=== PATIENT | female | born 1940 | race Caucasian/White ===

== ENCOUNTER 2017-02-22 14:39 | Emergency (ER) | payer MEDICARE, BC ==
[2017-02-22 15:20] VITALS: BP 128/66
--- NOTE | 2017-02-22 15:41 | EDM.PDOC ---
ED HPI GENERAL MEDICAL PROBLEM - General Chief Complaint: Lower Extremity Injury/Pain Stated Complaint: RIGHT FOOT, SECOND TOE FRACTURE? Time Seen by Provider: 02/22/17 15:37 Source of Information: Reports: Patient, Family - History of Present Illness INITIAL COMMENTS - FREE TEXT/NARRATIVE: Pt with fall last evening at home about 5pm. Stubbed right 2nd toe and scuffed left knee up. Did take Motrin this morning for pain. 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 - Related Data Allergies Allergy/AdvReac Type Severity Reaction Status Date / Time Sulfa (Sulfonamide Allergy Confusion Verified 02/22/17 15:19 Antibiotics) sulfamethoxazole Allergy Stomach Verified 02/22/17 15:19 [From Bactrim] Upset trimethoprim [From Bactrim] Allergy Stomach Verified 02/22/17 15:19 Upset Home Meds: Home Meds Aspirin [Adult Low Dose Aspirin EC] 324 mg PO DAILY 02/08/14 [History] Diltiazem [Cardizem CD] 240 mg PO DAILY 02/08/14 [History] Levothyroxine Sodium [Levothyroxine Sodium] 112 mcg PO DAILY 02/08/14 [History] Nitroglycerin [Nitrostat] 1 tab SL ASDIRECTED 12/23/14 [History] Omeprazole [Prilosec] 40 mg PO DAILY 12/23/14 [History] Biotin 1 tab PO DAILY 10/29/16 [History] Calcium Carbonate/Vitamin D3 [Calcium 250+D] 1 tab PO DAILY 10/29/16 [History] Cyanocobalamin (Vitamin B-12) [B-12] 1 tab PO DAILY 10/29/16 [History] Cyclobenzaprine [Flexeril] 1 tab PO BEDTIME PRN 10/29/16 [History] Evening [place] Oil [[place]ing [place]] 2 cap PO DAILY 10/29/16 [History] Gluc 2KCl/Chondr/Kash Hy/Hy Ac [Glucosamine & Chondroitin Cap] 1 cap PO DAILY [History] Mometasone Furoate [Elocon 0.1% Crm] 1 appful TOP DAILY 10/29/16 [History] Multivitamin with Minerals [Multiple Vitamin] 1 tab PO DAILY 10/29/16 [History] Nabumetone [Relafen] 1 tab PO DAILY PRN 10/29/16 [History] Ubidecarenone [Coenzyme Q10] 1 cap PO DAILY 10/29/16 [History] Vitamin E 1 cap PO DAILY 10/29/16 [History] Isosorbide Mononitrate [Imdur] 30 mg PO DAILY 02/22/17 [History] Rosuvastatin [Crestor] 5 mg PO BEDTIME 02/22/17 [History] Past Medical History Cardiovascular History: Reports: [place] Gastrointestinal History: Reports: GERD, Hiatal Hernia Musculoskeletal History: Reports: Arthritis Endocrine/Metabolic History: Reports: Hypothyroidism Oncologic (Cancer) History: Reports: Uterine, Other (See Below) Other Oncologic History: precancerous - Past Surgical History Cardiovascular Surgical History: Reports: None GI Surgical History: Reports: Appendectomy Female Surgical History: Reports: Hysterectomy Musculoskeletal Surgical History: Reports: None Social & Family History - Tobacco Use Smoking Status *Q: Never Smoker Second Hand Smoke Exposure: No - Alcohol Use Days Per Week of Alcohol Use: 2 Number of Drinks Per Day: 1 Total Drinks Per Week: 2 - Recreational Drug Use Recreational Drug Use: No Review of Systems - Review of Systems Review Of Systems: See Below Constitutional: Reports: No Symptoms Musculoskeletal: Reports: Foot Pain Skin: Reports: Bruising (to right 2nd toe) Trauma Exam - Physical Exam Exam: See Below Exam Limited By: No Limitations General Appearance: Reports: Alert, WD/WN, No Apparent Distress Head: Reports: Atraumatic, Normocephalic Neck: Reports: Non-Tender, Full Range of Motion, Normal Alignment, Normal Inspection Respiratory Exam: Reports: No Respiratory Distress, Lungs Clear, Normal Breath Sounds Cardiovascular: Reports: Normal Peripheral Pulses, Regular Rate, Rhythm, No Edema, No Gallop, No JVD, No Murmur, No Rub Extremities: Bony-Point Tenderness, Pain with Movement, Tenderness (right 2nd toe) 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 As Tested, No Motor/Sensory Deficits, Alert , Normal Mood/Affect, Oriented x 3 Skin: Reports: Ecchymosis, Other (skin with road rash to left knee) Course - Vital Signs Last Recorded V/S: Last Vital Signs Temp 98.6 F 02/22/17 15:19 Pulse 75 02/22/17 15:19 Resp 16 02/22/17 15:19 BP 128/66 02/22/17 15:19 Pulse Ox 95 02/22/17 15:19 - Orders/Labs/Meds Orders: Active Orders 24 hr Category Date Time Status Foot 2V Rt [CR] Stat Exams 02/22/17 15:40 Taken Departure - Departure Time of Disposition: 16:15 Disposition: Home, Self-Care 01 Condition: good Clinical Impression: Toe pain, left - Discharge Information Instructions: Pain Medicine Instructions, [id number] Referrals: Josafat Downs MD [Primary Care Provider] - Forms: ED Department Discharge Additional Instructions: Xray shows no fracture. Explained to patient that it is just bruised. We will cleanse and dress her left knee with bacitracin. She can radha tape her 2nd toe to the great toe for additional support. Encourage solid shoe, Ibuprofen and ice to toe for pain management. Followup if worsening. - My Orders Last 24 Hours: My Active Orders 02/22/17 15:40 Foot 2V Rt [CR] Stat - Assessment/Plan Last 24 Hours: My Active Orders 02/22/17 15:40 Foot 2V Rt [CR] Stat
[2017-02-22] MEDS ORDERED: Bacitracin Oint 1 GM U/D Packet TOP ONE (16:16)
--- NOTE | 2017-02-24 08:46 | CR ---
Advanced joint space narrowing second PIP joint. No fracture. No lateral view obtained. Advanced deg enerative changes first MTP and TMT joint.
== END 2017-02-22 16:35 | disposition home or self-care (01) ==
LOC: JP.ED 14:39
DX: S80.02XA Contusion of left knee, initial encounter (principal); M79.674 Pain in right toe(s); K21.9 Gastro-esophageal reflux disease without esophagitis; I25.2 Old myocardial infarction; M19.90 Unspecified osteoarthritis, unspecified site; E03.9 Hypothyroidism, unspecified; Z88.2 Allergy status to sulfonamides; Z88.8 Allergy status to other drugs, medicaments and biological substances; Z79.82 Long term (current) use of aspirin; Z79.899 Other long term (current) drug therapy; Z90.49 Acquired absence of other specified parts of digestive tract; Z90.710 Acquired absence of both cervix and uterus; W19.XXXA Unspecified fall, initial encounter
CPT/HCPCS: 73620-26-RT; 73620-RT; 99282; 99284

== ENCOUNTER 2017-12-05 07:26 | Day surgery (SDC) | payer MEDICARE, BC ==
[2017-12-05] MEDS ORDERED: Propofol 200 MG/20 ML SDV ONE (07:56)
[2017-12-05] MEDS ORDERED: fentaNYL 100 MCG/2 ML SDV ONE (07:57)
[2017-12-05] MEDS ORDERED: Lactated Ringers 1,000 ML IV SCH (08:15)
[2017-12-05 10:21] VITALS: BP 144/76
--- NOTE | 2017-12-08 07:32 | OR ---
DATE OF PROCEDURE: 12/05/2017 PREOPERATIVE DIAGNOSES: New onset constipation and history of polyps. POSTOPERATIVE DIAGNOSES: Diverticulosis, small rectal polyp, new onset constipation, history of polyps, and incomplete colonoscopy. PROCEDURE: Colonoscopy only to about 30 cm into the sigmoid colon. Biopsy resection of small rectal polyp. ANESTHESIA: IV anesthesia with monitored anesthesia care. INDICATION: This 77-year-old white female is referred for a colonoscopy. She has new onset constipation. Also, in the record, it says she has a history of polyps. She thinks her last colonoscopic exam was done about 10 years ago. I counseled her for a colonoscopy with possible biopsy and/or polypectomy, including risks and alternatives, and she gave her informed consent to proceed. DESCRIPTION OF PROCEDURE: The patient was placed in the left lateral decubitus position. IV anesthesia was administered by the Anesthesia Service. Time-out was held. A rectal exam was performed, which was unremarkable. The flexible video Olympus colonoscope was introduced through her anus, up her rectum, and out her colon. We could only get to about 30 cm. We could not, despite multiple maneuvers, get the scope to go any higher. The scope was then slowly withdrawn, examining the mucosa throughout. We saw multiple diverticula in the sigmoid colon. In the proximal rectum, we saw a small polyp, which was removed with the biopsy forceps. The scope was retroflexed. The distal rectum showed some minor hemorrhoidal tissue, otherwise unremarkable. The scope was straightened and removed. She tolerated the procedure well. We will order a barium enema. Issa Adams MD /[id number]
== END 2017-12-05 11:00 | disposition home or self-care (01) ==
LOC: JP.SDS 07:26
PROVIDERS: ATTEND Surgery
DX: Z12.11 Encounter for screening for malignant neoplasm of colon (principal); D12.8 Benign neoplasm of rectum; K57.30 Diverticulosis of large intestine without perforation or abscess without bleeding; I25.10 Atherosclerotic heart disease of native coronary artery without angina pectoris; I10 Essential (primary) hypertension; K21.9 Gastro-esophageal reflux disease without esophagitis; E03.9 Hypothyroidism, unspecified; Z86.010 Personal history of colon polyps; Z88.1 Allergy status to other antibiotic agents; Z88.2 Allergy status to sulfonamides
CPT/HCPCS: 45380; J2704; J3010; J7120; 88305

== ENCOUNTER 2018-10-12 20:03 | Emergency (ER) | payer MEDICARE, BC ==
--- NOTE | 2018-10-12 20:14 | EDM.PDOC ---
ED HPI GENERAL MEDICAL PROBLEM - General Chief Complaint: General Stated Complaint: ILLNESS Time Seen by Provider: 10/12/18 20:05 Source of Information: Reports: Patient, EMS History Limitations: Reports: Altered Mental Status - History of Present Illness INITIAL COMMENTS - FREE TEXT/NARRATIVE: 78-year-old female who lost her daughter yesterday had company today, was having some drinks and when the company got up to leave she went suddenly unresponsive. She was not responding to voice so EMS was called. In route her glucose was checked and was normal, and she was intermittently visiting with the ambulance crew. On arrival she was acting somnolent and unresponsive but when I pried her eyes open she started moving them around, I asked her to cooperate and start talking with me and then we began having a normal conversation. However when her service rig operator arrived who she was with earlier this evening, she went unresponsive again. Duration: Hour(s): (Symptoms of been waxing and waning for the past hour) Associated Symptoms: Reports: Confusion, Chest Pain (Intermittent chest discomfort), Malaise. Denies: Headaches, Loss of Appetite, Shortness of Breath - Related Data Allergies Allergy/AdvReac Type Severity Reaction Status Date / Time Sulfa (Sulfonamide Allergy Confusion Verified 09/11/18 14:31 Antibiotics) sulfamethoxazole Allergy Stomach Verified 09/11/18 14:31 [From Bactrim] Upset trimethoprim [From Bactrim] Allergy Stomach Verified 09/11/18 14:31 Upset Home Meds: Home Meds Aspirin [Adult Low Dose Aspirin EC] 325 mg PO DAILY 02/08/14 [History] Diltiazem [Cardizem CD] 240 mg PO DAILY 02/08/14 [History] Levothyroxine Sodium 125 mcg PO DAILY 02/08/14 [History] Nitroglycerin [Nitrostat] 0.4 mg SL ASDIRECTED 12/23/14 [History] Omeprazole [Prilosec] 40 mg PO DAILY 12/23/14 [History] Cyanocobalamin (Vitamin B-12) [B-12] 1 tab PO DAILY 10/29/16 [History] Mometasone Furoate [Elocon 0.1% Crm] 1 appful TOP DAILY 10/29/16 [History] Isosorbide Mononitrate [Imdur] 30 mg PO DAILY 02/22/17 [History] Rosuvastatin [Crestor] 5 mg PO BEDTIME 02/22/17 [History] Albuterol [IJD: Albuterol HFA] 1 - 2 puff IH Q4H PRN 12/03/17 [History] Docusate Calcium [Surfak] 240 mg PO DAILY 12/03/17 [History] Tolterodine [Detrol] 2 mg PO BID 12/03/17 [History] Past Medical History HEENT History: Reports: Hard of Hearing, Impaired Vision Cardiovascular History: Reports: Angina, [place] Respiratory History: Reports: Asthma Gastrointestinal History: Reports: Chronic Constipation, Colon Polyp, GERD, Hemorrhoids, Hiatal Hernia Genitourinary History: Reports: None EXTERN History: Reports: Musculoskeletal History: Reports: Arthritis Neurological History: Reports: Migraines Endocrine/Metabolic History: Reports: Hypothyroidism, Obesity/BMI 30+ Hematologic History: Reports: Blood Transfusion(s) Oncologic (Cancer) History: Reports: Uterine, Other (See Below) Other Oncologic History: precancerous - Infectious Disease History Infectious Disease History: Reports: Chicken Pox, Mumps - Past Surgical History Head Surgeries/Procedures: Reports: None HEENT Surgical History: Reports: Cataract Surgery, Oral Surgery Cardiovascular Surgical History: Reports: None Respiratory Surgical History: Reports: None GI Surgical History: Reports: Appendectomy, Colonoscopy Female Surgical History: Reports: Breast Biopsy, Hysterectomy, Oophorectomy Endocrine Surgical History: Reports: None Musculoskeletal Surgical History: Reports: None Oncologic Surgical History: Reports: None Social & Family History - Caffeine Use Caffeine Use: Reports: Coffee, Tea ED ROS GENERAL - Review of Systems Review Of Systems: See Below (A brief review of systems obtained while the patient was cooperating) Constitutional: Denies: Fever, Chills HEENT: Reports: No Symptoms Respiratory: Denies: Shortness of Breath Cardiovascular: Reports: Chest Pain GI/Abdominal: Denies: Nausea, Vomiting Skin: Reports: No Symptoms Neurological: Denies: Headache Psychiatric: Reports: Depression ED EXAM, GENERAL - Physical Exam Exam: See Below Exam Limited By: Altered Mental Status General Appearance: Other (Intermittent periods of alertness which seems to be controlled by the patient's motives) Eye Exam: Bilateral Eye: EOMI Head: Atraumatic Neck: Supple, Non-Tender Respiratory/Chest: No Respiratory Distress, Lungs Clear Cardiovascular: Regular Rate, Rhythm GI/Abdominal: Soft, Non-Tender Extremities: No: Pedal Edema Neurological: Inattentive, Slow to Respond Psychiatric: Depressed Mood, Flat Affect Skin Exam: Warm, Dry Course - Vital Signs Last Recorded V/S: Last Vital Signs Temp 95.7 F 10/12/18 20:12 Pulse 63 10/12/18 20:37 Resp 12 10/12/18 20:37 BP 148/69 H 10/12/18 20:37 Pulse Ox 93 L 10/12/18 20:37 - Orders/Labs/Meds Labs: Laboratory Tests 10/12/18 10/12/18 10/12/18 Range/Units 20:19 20:19 20:19 WBC 6.6 (4.5-11.0) K/uL RBC 4.06 (3.30-5.50) M/uL Hgb 13.4 (12.0-15.0) g/dL Hct 39.0 (36.0-48.0) % MCV 96 (80-98) fL MCH 33 H (27-31) pg MCHC 34 (32-36) % Plt Count 197 (150-400) K/uL Neut % (Auto) 46 (36-66) % Lymph % (Auto) 36 (24-44) % [place] % (Auto) 15 H (2-6) % Eos % (Auto) 2 (2-4) % Baso % (Auto) 1 (0-1) % Sodium 141 (140-148) mmol/L Potassium 3.4 L (3.6-5.2) mmol/L Chloride 103 (100-108) mmol/L Carbon Dioxide 28 (21-32) mmol/L Anion Gap 13.4 (5.0-14.0) mmol/L BUN 14 (7-18) mg/dL Creatinine 1.0 (0.6-1.0) mg/dL Est Cr Clr Drug Dosing 34.42 mL/min Estimated GFR (MDRD) 53 L (>60) Glucose 84 (74-106) mg/dL Calcium 9.1 (8.5-10.1) mg/dL Total Bilirubin 0.3 (0.2-1.0) mg/dL AST 22 (15-37) U/L ALT 24 (12-78) U/L Alkaline Phosphatase 87 (46-116) U/L Troponin I < 0.017 (0.000-0.056) ng/mL Total Protein 7.0 (6.4-8.2) g/dL Albumin 3.4 (3.4-5.0) g/dL Globulin 3.6 H (2.3-3.5) g/dL Albumin/Globulin Ratio 0.9 L (1.2-2.2) Ethyl Alcohol mg/dL 10/12/18 Range/Units 20:19 WBC (4.5-11.0) K/uL RBC (3.30-5.50) M/uL Hgb (12.0-15.0) g/dL Hct (36.0-48.0) % MCV (80-98) fL MCH (27-31) pg MCHC (32-36) % Plt Count (150-400) K/uL Neut % (Auto) (36-66) % Lymph % (Auto) (24-44) % [place] % (Auto) (2-6) % Eos % (Auto) (2-4) % Baso % (Auto) (0-1) % Sodium (140-148) mmol/L Potassium (3.6-5.2) mmol/L Chloride (100-108) mmol/L Carbon Dioxide (21-32) mmol/L Anion Gap (5.0-14.0) mmol/L BUN (7-18) mg/dL Creatinine (0.6-1.0) mg/dL Est Cr Clr Drug Dosing mL/min Estimated GFR (MDRD) (>60) Glucose (74-106) mg/dL Calcium (8.5-10.1) mg/dL Total Bilirubin (0.2-1.0) mg/dL AST (15-37) U/L ALT (12-78) U/L Alkaline Phosphatase (46-116) U/L Troponin I (0.000-0.056) ng/mL Total Protein (6.4-8.2) g/dL Albumin (3.4-5.0) g/dL Globulin (2.3-3.5) g/dL Albumin/Globulin Ratio (1.2-2.2) Ethyl Alcohol 230 mg/dL - Re-Assessments/Exams Free Text/Narrative Re-Assessment/Exam: 10/12/18 20:14 EtOH, CBC, CMP and troponin were obtained. 10/12/18 21:21 Labs all returned reassuring other than an EtOH of 0.230. I explained to the patient's friend who accompanied her that I have no reason for hospitalization, patient continued to wax and wane with cooperation. Departure - Departure Time of Disposition: 21:26 Disposition: Home, Self-Care 01 Condition: Fair Clinical Impression: Grief reaction Alcohol intoxication Qualifiers: Complication of substance-induced condition: uncomplicated Qualified Code(s): F10.920 - Alcohol use, unspecified with intoxication, uncomplicated - Discharge Information Instructions: Alcohol Intoxication, [id number] Referrals: PCP,None [Primary Care Provider] - Forms: ED Department Discharge Care Plan Goals: Avoid alcohol in the near future, and continue your regular medications. Return in the next 24-48 hours if not improving satisfactorily.
[2018-10-12 20:38] VITALS: BP 148/69
== END 2018-10-12 21:26 | disposition home or self-care (01) ==
LOC: JP.ED 20:03
DX: F10.920 Alcohol use, unspecified with intoxication, uncomplicated (principal); F43.20 Adjustment disorder, unspecified; Y90.7 Blood alcohol level of 200-239 mg/100 ml; I25.2 Old myocardial infarction; Z88.8 Allergy status to other drugs, medicaments and biological substances; Z79.82 Long term (current) use of aspirin; Z79.899 Other long term (current) drug therapy
CPT/HCPCS: 36415; 80053; 84484; 85025; 99285; G0480; 99284

== ENCOUNTER 2018-12-23 22:23 | Emergency (ER) | payer MEDICARE, BC ==
--- NOTE | 2018-12-23 23:00 | EDM.PDOC ---
ED HPI GENERAL MEDICAL PROBLEM - General Chief Complaint: Chest Pain Stated Complaint: CHEST PAIN Time Seen by Provider: 12/23/18 22:58 Source of Information: Reports: Patient History Limitations: Reports: No Limitations - History of Present Illness INITIAL COMMENTS - FREE TEXT/NARRATIVE: pt arrived with a history of having some chest tightness at home. Her sig other became very confused. He waS DIFFICULT TO HANDLE AND SHE GOT VERY UPSET. tHEY HAD BEEN [place] THE [place] IN THE DAY. sHE DOES ADMIT TO HAVING SOME DRINKS TONIGHT. Onset: Today, Sudden Duration: Hour(s): Location: Reports: Chest Associated Symptoms: Reports: Chest Pain - Related Data Allergies Allergy/AdvReac Type Severity Reaction Status Date / Time Sulfa (Sulfonamide Allergy Confusion Verified 12/23/18 22:30 Antibiotics) sulfamethoxazole Allergy Stomach Verified 12/23/18 22:30 [From Bactrim] Upset trimethoprim [From Bactrim] Allergy Stomach Verified 12/23/18 22:30 Upset Home Meds: Home Meds Aspirin [Adult Low Dose Aspirin EC] 325 mg PO DAILY 02/08/14 [History] Diltiazem [Cardizem CD] 240 mg PO DAILY 02/08/14 [History] Levothyroxine Sodium 125 mcg PO DAILY 02/08/14 [History] Nitroglycerin [Nitrostat] 0.4 mg SL ASDIRECTED 12/23/14 [History] Omeprazole [Prilosec] 40 mg PO DAILY 12/23/14 [History] Cyanocobalamin (Vitamin B-12) [B-12] 1 tab PO DAILY 10/29/16 [History] Mometasone Furoate [Elocon 0.1% Crm] 1 appful TOP DAILY 10/29/16 [History] Rosuvastatin [Crestor] 5 mg PO BEDTIME 02/22/17 [History] Albuterol [IJD: Albuterol HFA] 1 - 2 puff IH Q4H PRN 12/03/17 [History] Docusate Calcium [Surfak] 240 mg PO DAILY 12/03/17 [History] Tolterodine [Detrol] 2 mg PO BID 12/03/17 [History] Past Medical History HEENT History: Reports: Hard of Hearing, Impaired Vision Cardiovascular History: Reports: Angina, [place] Respiratory History: Reports: Asthma Gastrointestinal History: Reports: Chronic Constipation, Colon Polyp, GERD, Hemorrhoids, Hiatal Hernia Genitourinary History: Reports: None 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: Musculoskeletal History: Reports: Arthritis Neurological History: Reports: Migraines Psychiatric History: Reports: Anxiety Endocrine/Metabolic History: Reports: Hypothyroidism, Obesity/BMI 30+ Hematologic History: Reports: Blood Transfusion(s) Oncologic (Cancer) History: Reports: Uterine, Other (See Below) Other Oncologic History: precancerous Dermatologic History: Reports: Eczema - Infectious Disease History Infectious Disease History: Reports: Measles, Mumps - Past Surgical History Head Surgeries/Procedures: Reports: None HEENT Surgical History: Reports: Cataract Surgery, Oral Surgery Cardiovascular Surgical History: Reports: None Respiratory Surgical History: Reports: None GI Surgical History: Reports: Appendectomy, Colonoscopy Female Surgical History: Reports: Breast Biopsy, Hysterectomy, Oophorectomy Endocrine Surgical History: Reports: None Musculoskeletal Surgical History: Reports: None Oncologic Surgical History: Reports: None Social & Family History - Tobacco Use Smoking Status *Q: Never Smoker - Caffeine Use Caffeine Use: Reports: Coffee - Recreational Drug Use Recreational Drug Use: No ED ROS GENERAL - Review of Systems Review Of Systems: See Below Constitutional: Reports: Other (PT WAS VERY UPSET AND SHE DEVELOPED SOME CHEST TIGHTNESS. sHE STATES SHE NORMALLY DOES NOT DRINK BUT DID HAVE SEVERAL DRINKS TONIGHT. ) HEENT: Reports: No Symptoms Respiratory: Reports: No Symptoms Cardiovascular: Reports: No Symptoms, Chest Pain, Other ( SHE DESCRIBED THIS MORE OF A TIGHTNESS AND SHE DID NOT HAVE PAIN AFTER ARRIVAL. ) Endocrine: Reports: No Symptoms GI/Abdominal: Reports: No Symptoms : Reports: No Symptoms Musculoskeletal: Reports: No Symptoms Skin: Reports: No Symptoms Neurological: Reports: Other (PT DID FALL ASLEEP WHILE SHE WAS BEING TALKED TO. ) Psychiatric: Reports: Anxiety ED EXAM, GENERAL - Physical Exam Exam: See Below Free Text/Narrative:: pT DOES SMELL OF ETOH. sHE ADMIOTS TO HAVING SEVERAL DRINKS. sHE STATES HER SIGNIFICANT OTHER BECAME MORE CONFUSED AND SOMEWHAT COMBATIVE. tHE PT DOES FALL ASLEEP WHILE SHE IS BEING QUESTIONED. Exam Limited By: No Limitations General Appearance: Alert, No Apparent Distress, Other (PUPILS EQUAL AND REACTIVE. ) Ears: Normal TMs Nose: Normal Inspection Throat/Mouth: Normal Inspection Head: Atraumatic Neck: Normal Inspection Respiratory/Chest: No Respiratory Distress Cardiovascular: Regular Rate, Rhythm GI/Abdominal: Soft, Non-Tender (Female) Exam: Deferred Rectal (Female) Exam: Deferred Back Exam: Normal Inspection Extremities: Normal Inspection Neurological: Alert, Oriented, Normal Cognition, Other (PT DOES APPEAR INTOXICATED AND FALLS ASLEEP WHILE SHE IS BEING SPOKEN TO. ) Course - Vital Signs Last Recorded V/S: Last Vital Signs Temp 35.2 C 12/23/18 22:31 Pulse 54 L 12/24/18 03:39 Resp 15 12/24/18 03:39 BP 111/56 L 12/23/18 23:18 Pulse Ox 98 12/24/18 03:39 - Orders/Labs/Meds Orders: Active Orders 24 hr Category Date Time Status EKG Documentation Completion [RC] ASDIRECTED Care 12/23/18 22:58 Active EKG 12 Lead [EK] Routine Ther 12/23/18 22:58 Ordered Labs: Laboratory Tests 12/23/18 12/23/18 12/23/18 Range/Units 23:00 23:00 23:00 WBC 6.2 (4.5-11.0) K/uL RBC 3.87 (3.30-5.50) M/uL Hgb 12.4 (12.0-15.0) g/dL Hct 38.0 (36.0-48.0) % MCV 98 (80-98) fL MCH 32 H (27-31) pg MCHC 33 (32-36) % Plt Count 192 (150-400) K/uL Neut % (Auto) 51 (36-66) % Lymph % (Auto) 38 (24-44) % [place] % (Auto) 10 H (2-6) % Eos % (Auto) 1 L (2-4) % Baso % (Auto) 0 (0-1) % Sodium 141 (140-148) mmol/L Potassium 3.0 L (3.6-5.2) mmol/L Chloride 103 (100-108) mmol/L Carbon Dioxide 22 (21-32) mmol/L Anion Gap 19.0 H (5.0-14.0) mmol/L BUN 16 (7-18) mg/dL Creatinine 0.8 (0.6-1.0) mg/dL Est Cr Clr Drug Dosing 43.03 mL/min Estimated GFR (MDRD) > 60 (>60) Glucose 95 (74-106) mg/dL Calcium 8.9 (8.5-10.1) mg/dL Total Bilirubin 0.3 (0.2-1.0) mg/dL AST 21 (15-37) U/L ALT 20 (12-78) U/L Alkaline Phosphatase 107 (46-116) U/L Troponin I < 0.017 (0.000-0.056) ng/mL Total Protein 6.9 (6.4-8.2) g/dL Albumin 3.4 (3.4-5.0) g/dL Globulin 3.5 (2.3-3.5) g/dL Albumin/Globulin Ratio 1.0 L (1.2-2.2) TSH, Ultra Sensitive (0.358-3.740) uIU/mL Ethyl Alcohol 190 mg/dL 12/23/18 Range/Units 23:00 WBC (4.5-11.0) K/uL RBC (3.30-5.50) M/uL Hgb (12.0-15.0) g/dL Hct (36.0-48.0) % MCV (80-98) fL MCH (27-31) pg MCHC (32-36) % Plt Count (150-400) K/uL Neut % (Auto) (36-66) % Lymph % (Auto) (24-44) % [place] % (Auto) (2-6) % Eos % (Auto) (2-4) % Baso % (Auto) (0-1) % Sodium (140-148) mmol/L Potassium (3.6-5.2) mmol/L Chloride (100-108) mmol/L Carbon Dioxide (21-32) mmol/L Anion Gap (5.0-14.0) mmol/L BUN (7-18) mg/dL Creatinine (0.6-1.0) mg/dL Est Cr Clr Drug Dosing mL/min Estimated GFR (MDRD) (>60) Glucose (74-106) mg/dL Calcium (8.5-10.1) mg/dL Total Bilirubin (0.2-1.0) mg/dL AST (15-37) U/L ALT (12-78) U/L Alkaline Phosphatase (46-116) U/L Troponin I (0.000-0.056) ng/mL Total Protein (6.4-8.2) g/dL Albumin (3.4-5.0) g/dL Globulin (2.3-3.5) g/dL Albumin/Globulin Ratio (1.2-2.2) TSH, Ultra Sensitive 0.116 L (0.358-3.740) uIU/mL Ethyl Alcohol mg/dL Meds: Medications Discontinued Medications Generic Name Dose Route Start Last Admin Trade Name Viviana PRN Reason Stop Dose Admin Potassium Chloride 20 meq 12/23/18 23:43 12/24/18 00:04 Klor-Con M20 PO 12/23/18 23:44 20 meq ONETIME ONE Administration - Re-Assessments/Exams Free Text/Narrative Re-Assessment/Exam: 12/23/18 23:54 pT HAS A ETOH OF .19. hER K IS LOW AT 3.0. hER OTHER LABS ARE NORMAL. sHE HAS CARDIAC ENZYMES --TROP THAT IS NORMAL. HER EKG LOOKS GOOD. 12/24/18 06:02 Pt was very sleepy. She did rest in the ER. In the early Am hours she was able to find a ride home. She did not have any further chest pain. Departure - Departure Time of Disposition: 06:04 Disposition: Home, Self-Care 01 Condition: Fair Clinical Impression: Atypical chest pain Referrals: PCP,None [Primary Care Provider] - Forms: ED Department Discharge Care Plan Goals: rtc or see her own physian if any further chest pain. - My Orders Last 24 Hours: My Active Orders 12/23/18 22:58 EKG Documentation Completion [RC] ASDIRECTED EKG 12 Lead [EK] Routine - Assessment/Plan Last 24 Hours: My Active Orders 12/23/18 22:58 EKG Documentation Completion [RC] ASDIRECTED EKG 12 Lead [EK] Routine
[2018-12-23 23:18] VITALS: BP 111/56
[2018-12-23] MEDS ORDERED: Potassium Chloride 20 MEQ Tab.ER PO ONE (23:43)
== END 2018-12-24 09:16 | disposition home or self-care (01) ==
LOC: JP.ED 22:23
DX: R07.89 Other chest pain (principal); I25.2 Old myocardial infarction; J45.909 Unspecified asthma, uncomplicated; Z88.2 Allergy status to sulfonamides; Z79.82 Long term (current) use of aspirin; Z79.899 Other long term (current) drug therapy
CPT/HCPCS: 36415; 80053; 84443; 84484; 85025; 93005; 99285; A9270; G0480

== ENCOUNTER 2020-06-28 19:15 | Emergency (ER) | payer MEDICARE, BC ==
--- NOTE | 2020-06-28 21:11 | CRLCT ---
INDICATION: Head injury TECHNIQUE: CT head without contrast. COMPARISON: 09/11/2018 FINDINGS: CSF spaces: Within normal limits for age. Brain parenchyma and extra-axial spaces: The shah-white differentiation is normal. No sign of mass, hemorrhage, or midline shift. No extra-axial fluid collection. Skull base and calvarium: The visualized paranasal sinuses and mastoid air cells demonstrate no acute or significant findings. The visualized orbits are grossly unremarkable. No skull fractures. Right temporal scalp hematoma is present. IMPRESSION: Right temporal scalp hematoma without evidence of fracture or intracranial hemorrhage. Dictated by Franklin Fields MD @ 06/28/2020 9:09:54 PM Please note that all CT scans at this facility use dose modulation, iterative reconstruction, and/or weight-based dosing when appropriate to reduce radiation dose to as low as reasonably achievable. Dictated by: Franklin Fields MD @ 06/28/2020 21:10:31 (Electronically Signed)
[2020-06-28] MEDS ORDERED: Sodium Chloride 0.9% 1,000 ML IV SCH (21:15)
--- NOTE | 2020-06-28 21:25 | EDM.PDOC ---
ED HPI GENERAL MEDICAL PROBLEM - General Chief Complaint: Head Injury Stated Complaint: ACCIDENT [facility]IA [facility] Time Seen by Provider: 06/28/20 19:25 Source of Information: Reports: Patient, EMS History Limitations: Reports: No Limitations - History of Present Illness INITIAL COMMENTS - FREE TEXT/NARRATIVE: pt arrived with a history of her nephew finding her on the floor. She had not been responsive at first. She had 3 drinks tonight. She has been drinking fairly regularly. She hasd alot of bleeding from the scalp. She had like a punctuire wound to the scalp. She is not having pain anywhere else. Onset: Today, Sudden Duration: Hour(s): Location: Reports: Head, Other (pt is bleeding from the rt side oh her head. 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: Dressing(s), IV/IO denies pain Pain Score (Numeric/FACES): 0 - Related Data Allergies Allergy/AdvReac Type Severity Reaction Status Date / Time Sulfa (Sulfonamide Allergy Confusion Verified 06/28/20 19:18 Antibiotics) sulfamethoxazole Allergy Stomach Verified 06/28/20 19:18 [From Bactrim] Upset trimethoprim [From Bactrim] Allergy Stomach Verified 06/28/20 19:18 Upset Home Meds: Home Meds Aspirin [Adult Low Dose Aspirin EC] 81 mg PO DAILY 02/08/14 [History] Diltiazem [Cardizem CD] 240 mg PO BEDTIME 02/08/14 [History] Levothyroxine Sodium 125 mcg PO DAILY 02/08/14 [History] Nitroglycerin [Nitrostat] 0.4 mg SL ASDIRECTED 12/23/14 [History] Omeprazole [Prilosec] 40 mg PO DAILY 12/23/14 [History] Cyanocobalamin (Vitamin B-12) [B-12] 1 tab PO DAILY 10/29/16 [History] Rosuvastatin [Crestor] 5 mg PO BEDTIME 02/22/17 [History] Albuterol [IJD: Albuterol HFA] 1 - 2 puff IH Q4H PRN 12/03/17 [History] Tolterodine [Detrol] 2 mg PO BID 12/03/17 [History] Past Medical History HEENT History: Reports: Hard of Hearing, Impaired Vision Cardiovascular History: Reports: [place], [place] Respiratory History: Reports: Asthma Gastrointestinal History: Reports: Chronic Constipation, Colon Polyp, GERD, Hemorrhoids, Hiatal Hernia Genitourinary History: Reports: None 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: Musculoskeletal History: Reports: Arthritis Neurological History: Reports: Migraines Psychiatric History: Reports: Anxiety Endocrine/Metabolic History: Reports: Hypothyroidism, Obesity/BMI 30+ Hematologic History: Reports: Blood Transfusion(s) Oncologic (Cancer) History: Reports: Uterine, Other (See Below) Other Oncologic History: precancerous Dermatologic History: Reports: Eczema - Infectious Disease History Infectious Disease History: Reports: Measles, Mumps - Past Surgical History Head Surgeries/Procedures: Reports: None HEENT Surgical History: Reports: Cataract Surgery, Oral Surgery Respiratory Surgical History: Reports: None GI Surgical History: Reports: Appendectomy, Colonoscopy Female Surgical History: Reports: Breast Biopsy, Hysterectomy, Oophorectomy Endocrine Surgical History: Reports: None Musculoskeletal Surgical History: Reports: None Oncologic Surgical History: Reports: None Social & Family History - Tobacco Use Smoking Status *Q: Never Smoker - Caffeine Use Caffeine Use: Reports: Coffee - Recreational Drug Use Recreational Drug Use: No ED ROS GENERAL - Review of Systems Review Of Systems: See Below Constitutional: Reports: No Symptoms HEENT: Reports: No Symptoms Respiratory: Reports: No Symptoms Cardiovascular: Reports: No Symptoms Endocrine: Reports: No Symptoms GI/Abdominal: Reports: No Symptoms : Reports: No Symptoms Musculoskeletal: Reports: No Symptoms Skin: Reports: No Symptoms Neurological: Reports: Other (pt does not recall what happened to her. She has a headach She had 3 drinks tonight. She alot of bleeding from the rt side of her head. e) Psychiatric: Reports: No Symptoms ED EXAM, HEAD INJURY - Physical Exam Exam: See Below Text/Narrative:: pt is an alert pt who appear intoxicated. She had alot bleeding on the rt side of her scalp but she only has an abrasion at the site. Exam Limited By: No Limitations General Appearance: Alert, Anxious, Mild Distress Head: Other (pupils are equal and reactive. She has an abrasion on the rt side of her head which does not require sutures. ) Throat/Mouth: Normal Inspection Neck: Non-Tender Respiratory: No Respiratory Distress Cardiovascular: Regular Rate, Rhythm GI/Abdominal Exam: Soft, Non-Tender (Female) Exam: Deferred Rectal (Female) Exam: Deferred Back Exam: Normal Inspection Extremities: Normal Inspection Neurologic: Alert, Other (pt is intoxicated. ) Course - Vital Signs Last Recorded V/S: Last Vital Signs Temp 36.4 C 06/28/20 19:33 Pulse 66 06/28/20 21:39 Resp 15 06/28/20 19:33 BP 125/61 06/28/20 21:39 Pulse Ox 96 06/28/20 21:39 - Orders/Labs/Meds Orders: Active Orders 24 hr Category Date Time Status Sodium Chloride 0.9% [Normal Saline] 1,000 ml Med 06/28/20 21:15 Active IV ASDIRECTED Medication Orders Sodium Chloride (Normal Saline) 1,000 mls @ 500 mls/hr IV ASDIRECTED MARIAH Last Admin: 06/28/20 21:26 Dose: 500 mls/hr Documented by: HARIS Labs: Laboratory Tests 06/28/20 06/28/20 06/28/20 Range/Units 20:35 20:35 20:35 WBC 6.2 (4.5-11.0) K/uL RBC 3.49 (3.30-5.50) M/uL Hgb 11.9 L (12.0-15.0) g/dL Hct 35.6 L (36.0-48.0) % MCV 102 H (80-98) fL MCH 34 H (27-31) pg MCHC 33 (32-36) % Plt Count 211 (150-400) K/uL Neut % (Auto) 58 (36-66) % Lymph % (Auto) 29 (24-44) % [place] % (Auto) 11 H (2-6) % Eos % (Auto) 2 (2-4) % Baso % (Auto) 1 (0-1) % Sodium 137 L (140-148) mmol/L Potassium 3.3 L (3.6-5.2) mmol/L Chloride 101 (100-108) mmol/L Carbon Dioxide 23 (21-32) mmol/L Anion Gap 16.3 H (5.0-14.0) mmol/L BUN 11 (7-18) mg/dL Creatinine 1.2 H (0.6-1.0) mg/dL Est Cr Clr Drug Dosing 26.41 mL/min Estimated GFR (MDRD) 43 L (>60) Glucose 87 (74-106) mg/dL Calcium 8.1 L (8.5-10.1) mg/dL Total Bilirubin 0.4 (0.2-1.0) mg/dL AST 41 H D (15-37) U/L ALT 36 D (12-78) U/L Alkaline Phosphatase 86 (46-116) U/L Total Protein 6.8 (6.4-8.2) g/dL Albumin 3.4 (3.4-5.0) g/dL Globulin 3.4 (2.3-3.5) g/dL Albumin/Globulin Ratio 1.0 L (1.2-2.2) Ethyl Alcohol 204 mg/dL Meds: Medications Generic Name Dose Route Start Last Admin Trade Name Freq PRN Reason Stop Dose Admin Sodium Chloride 1,000 mls @ 500 mls/hr 06/28/20 21:15 06/28/20 21:26 Normal Saline IV 500 mls/hr ASDIRECTED MARIAH Administration Discontinued Medications Generic Name Dose Route Start Last Admin Trade Name Freq PRN Reason Stop Dose Admin Potassium Chloride 20 meq 06/28/20 21:40 Klor-Con M20 PO 06/28/20 21:41 ONETIME ONE - Re-Assessments/Exams Free Text/Narrative Re-Assessment/Exam: 06/28/20 21:28 cat scan of the head is normal. pt has a etoh level of greater than .2. Her creatnine is 1.2. She was given 500 cc of fluid will ambulate the pt prior to discharge. 06/28/20 21:28 06/28/20 21:30 06/28/20 21:40 Departure - Departure Time of Disposition: 21:43 Disposition: Home, Self-Care 01 Condition: Fair Clinical Impression: Intoxication, Abrasion of scalp, Loss of consciousness - Discharge Information Referrals: Josafat Downs MD [Primary Care Provider] - Forms: ED Department Discharge Care Plan Goals: avoid drinking etoh, push fluids nephew to watch pt tonight at the hous. Sepsis Event Note (ED) - Evaluation Sepsis Screening Result: No Definite Risk - Focused Exam Vital Signs: Vital Signs Temp Pulse Resp BP Pulse Ox 06/28/20 21:39 66 125/61 96 06/28/20 20:32 68 115/58 L 96 06/28/20 19:33 36.4 C 71 15 136/62 97 06/28/20 19:19 36.4 C 71 15 136/62 97 - My Orders Last 24 Hours: My Active Orders 06/28/20 21:15 Sodium Chloride 0.9% [Normal Saline] 1,000 ml IV ASDIRECTED - Assessment/Plan Last 24 Hours: My Active Orders 06/28/20 21:15 Sodium Chloride 0.9% [Normal Saline] 1,000 ml IV ASDIRECTED
[2020-06-28 21:40] VITALS: BP 125/61; PULSE 66
[2020-06-28] MEDS ORDERED: Potassium Chloride 20 MEQ Tab.ER PO ONE (21:40)
== END 2020-06-28 23:10 | disposition home or self-care (01) ==
LOC: JP.ED 19:15
DX: F10.129 Alcohol abuse with intoxication, unspecified (principal); S00.01XA Abrasion of scalp, initial encounter; Y90.7 Blood alcohol level of 200-239 mg/100 ml; I25.2 Old myocardial infarction; J45.909 Unspecified asthma, uncomplicated; K21.9 Gastro-esophageal reflux disease without esophagitis; M19.90 Unspecified osteoarthritis, unspecified site; E03.9 Hypothyroidism, unspecified; E66.9 Obesity, unspecified; Z68.32 Body mass index [BMI] 32.0-32.9, adult; Z88.2 Allergy status to sulfonamides; Z88.1 Allergy status to other antibiotic agents; Z79.82 Long term (current) use of aspirin; W19.XXXA Unspecified fall, initial encounter
CPT/HCPCS: 36415; 70450; 80053; 80307; 85025; 96360; 96361; 99285; A9270; J7030; 99283

== ENCOUNTER 2021-11-11 07:57 | Emergency (ER) | payer MEDICARE, BC ==
[2021-11-11 08:18] VITALS: BP 146/76; PULSE 79
[2021-11-11] MEDS ORDERED: fentaNYL 100 MCG/2 ML SDV IM ONE (08:34)
== END 2021-11-11 09:48 | disposition home or self-care (01) ==
LOC: JP.ED 07:57
DX: S42.214A Unspecified nondisplaced fracture of surgical neck of right humerus, initial encounter for closed fracture (principal); I25.2 Old myocardial infarction; E03.9 Hypothyroidism, unspecified; E66.9 Obesity, unspecified; Z68.30 Body mass index [BMI] 30.0-30.9, adult; Z88.0 Allergy status to penicillin; Z88.1 Allergy status to other antibiotic agents; Z79.899 Other long term (current) drug therapy; Z79.82 Long term (current) use of aspirin; W18.30XA Fall on same level, unspecified, initial encounter
CPT/HCPCS: 73030; 96372; 99283; J3010

== ENCOUNTER 2022-03-13 07:22 | Day surgery (SDC) | payer MEDICARE, BC ==
[2022-03-13] MEDS ORDERED: fentaNYL 250 MCG/5 ML SDV ONE (07:30)
[2022-03-13] MEDS ORDERED: Glycopyrrolate 0.2 MG/ML 5 ML MDV ONE (07:31)
[2022-03-13] MEDS ORDERED: Ondansetron 4 MG/2 ML SDV ONE (07:31)
[2022-03-13] MEDS ORDERED: Propofol 200 MG/20 ML SDV ONE (07:31)
[2022-03-13] MEDS ORDERED: Neostigmine Methylsulfate 1 MG/ML 5 ML Syringe ONE (07:31)
[2022-03-13] MEDS ORDERED: Rocuronium 50 MG/5 ML Vial ONE (07:31)
[2022-03-13] MEDS ORDERED: Dexamethasone 4 MG/ML SDV ONE (07:31)
[2022-03-13] MEDS ORDERED: Succinylcholine 200 MG/10 ML MDV ONE (07:31)
[2022-03-13] MEDS ORDERED: Bupivacaine 0.5% 30 ML SDV ONE ×2 (07:35→08:01)
[2022-03-13] MEDS ORDERED: Lactated Ringers 1,000 ML IV SCH (09:00)
[2022-03-13] MEDS ORDERED: Nozin Nasal Sanitizer NASBOTH SCH (09:00)
[2022-03-13] MEDS: Albuterol/Ipratropium 3.0-0.5 MG/3 ML Neb Soln NEB ONE ×2 (09:15→13:30)
[2022-03-13] MEDS ORDERED: ceFAZolin 2 GM in Premix Bag 1 BAG IV ONE (09:30)
[2022-03-13] MEDS ORDERED: ePHEDrine 50 MG/ML SDV ONE (10:45)
[2022-03-13] MEDS ORDERED: Sodium Chloride 0.9% 10 ML ONE (10:45)
[2022-03-13] MEDS ORDERED: HYDROmorphone 0.5 MG/0.5 ML Syringe IVPUSH PRN (12:04)
[2022-03-13] MEDS ORDERED: oxyCODONE 5 MG Tab PO PRN ×2 (12:04)
[2022-03-13] MEDS ORDERED: Ondansetron 4 MG/2 ML SDV IVPUSH PRN (12:04)
[2022-03-13] MEDS ORDERED: traMADol 50 MG Tab PO PRN (12:04)
[2022-03-13] MEDS ORDERED: Albuterol 8 GM Inhaler INH PRN (12:10)
[2022-03-13] MEDS ORDERED: Sodium Chloride 0.9% 1,000 ML IV SCH (12:15)
[2022-03-13] MEDS: Ketorolac 30 MG/ML SDV IVPUSH SCH ×2 (14:44→23:33)
[2022-03-13] MEDS: Acetaminophen 500 MG Tab PO SCH ×2 (14:44→20:03)
[2022-03-13] MEDS: ceFAZolin 1 GM in Premix Bag 1 BAG IV SCH ×2 (15:30→23:37)
[2022-03-13] MEDS: Nozin Nasal Sanitizer NASBOTH SCH (20:00)
[2022-03-13] MEDS: Docusate Sodium 100 MG Cap PO SCH (20:03)
[2022-03-13] MEDS ORDERED: Rosuvastatin 10 MG Tab PO SCH (21:00)
[2022-03-13] MEDS ORDERED: Diltiazem 120 MG Cap.CD PO SCH (21:00)
[2022-03-14] MEDS: Acetaminophen 500 MG Tab PO SCH ×3 (02:46→13:56)
[2022-03-14] MEDS ORDERED: Levothyroxine 100 MCG Tab PO SCH (07:30)
[2022-03-14] MEDS ORDERED: Pantoprazole 40 MG Tab.CR PO SCH (07:30)
[2022-03-14] MEDS: ceFAZolin 1 GM in Premix Bag 1 BAG IV SCH (08:22)
[2022-03-14] MEDS: Nozin Nasal Sanitizer NASBOTH SCH (08:23)
[2022-03-14] MEDS: Docusate Sodium 100 MG Cap PO SCH (08:23)
[2022-03-14] MEDS ORDERED: Cyanocobalamin (Vitamin B12) 1,000 MCG Tab PO SCH (09:00)
[2022-03-14] MEDS ORDERED: Furosemide 20 MG Tab PO SCH (09:00)
[2022-03-14] MEDS ORDERED: Celecoxib 200 MG Cap PO SCH (09:00)
[2022-03-14 11:28] VITALS: BP 121/50; PULSE 68
== END 2022-03-14 14:42 | disposition home or self-care (01) ==
LOC: JP.SDS 07:22 → JP.2SS 12:04 → JP.SDS 03-14 14:42
PROVIDERS: ATTEND Specialist
DX: M19.012 Primary osteoarthritis, left shoulder (principal); I10 Essential (primary) hypertension; K21.9 Gastro-esophageal reflux disease without esophagitis; E03.9 Hypothyroidism, unspecified; I25.2 Old myocardial infarction; E66.9 Obesity, unspecified; E78.49 Other hyperlipidemia; Z88.2 Allergy status to sulfonamides; Z68.32 Body mass index [BMI] 32.0-32.9, adult; Z79.899 Other long term (current) drug therapy
CPT/HCPCS: 23472; 36415; 73020-26-LT; 73020-LT; 85027; 94640; 97110-GP; 97116-GP; 97161-GP; 97165-GO; 97530-GP; 97535-GO; A9270-GY; C1776; J0330; J0690; J1100; J1885; J2405; J2704; J2710; J3010; J3490; J7030; J7120; J7620

== ENCOUNTER 2024-02-06 07:05 | Day surgery (SDC) | payer MEDICARE, BC ==
[2024-02-06 07:31] LABS: HEMATOCRIT 39.1 % (34.3-46.0); HEMOGLOBIN 13.7 g/dL (11.2-15.5); MEAN CORPUSCULAR HEMOGLOBIN 34.9 pg (31.6-35.5); MEAN CORPUSCULAR VOLUME 99.5 fL (81.4-99.0); RED BLOOD CELL COUNT 3.93 M/uL (3.77-5.24); WHITE BLOOD CELL COUNT,WBC 6.7 K/uL (3.2-11.0)
[2024-02-06 07:52] LABS: ALANINE AMINOTRANSFERASE,ALT 30 U/L (12-78); ALKALINE PHOSPHATASE 106 U/L (46-116); ASPARTATE AMNIOTRANSFERASE,AST 36 U/L (15-37); BILIRUBIN TOTAL 1.1 mg/dL (0.2-1.0); BLOOD UREA NITROGEN,BUN 9 mg/dL (7-18); CALCIUM 9.5 mg/dL (8.5-10.1); CARBON DIOXIDE,CO2 29 mmol/L (21-32); CHLORIDE,CL 101 mmol/L (100-108); CREATININE 0.9 mg/dL (0.6-1.0); EST CRCL DRUG DOSING (CG) 33.42 mL/min; ESTIMATED GFR 63 mL/min (>60); GLUCOSE RANDOM 100 mg/dL (74-106); POTASSIUM,K 3.3 mmol/L (3.6-5.2); PROTEIN TOTAL,TP 7.9 g/dL (6.4-8.2); SODIUM,NA 140 mmol/L (140-148)
[2024-02-06] MEDS: Sodium Chloride 0.9% 1,000 ML IV SCH (07:54)
[2024-02-06 07:55] LABS: ANION GAP 13.3 mmol/L (5.0-14.0)
[2024-02-06] MEDS: Indocyanine Green 25 MG SDV IV ONE (07:55)
[2024-02-06] MEDS ORDERED: fentaNYL 250 MCG/5 ML SDV ONE (08:27)
[2024-02-06] MEDS ORDERED: Dexamethasone 4 MG/ML SDV ONE (08:29)
[2024-02-06] MEDS ORDERED: Rocuronium 50 MG/5 ML Vial ONE (08:29)
[2024-02-06] MEDS ORDERED: Ondansetron 4 MG/2 ML SDV ONE (08:29)
[2024-02-06] MEDS ORDERED: Neostigmine Methylsulfate 10 MG/10 ML MDV ONE (08:29)
[2024-02-06] MEDS ORDERED: Glycopyrrolate 0.2 MG/ML 5 ML MDV ONE (08:29)
[2024-02-06] MEDS ORDERED: Propofol 200 MG/20 ML SDV ONE (08:29)
[2024-02-06] MEDS: metroNIDAZOLE/Normal Saline 500 MG in Premix Bag 1 BAG IV ONE (08:30)
[2024-02-06] MEDS: ceFAZolin 2 GM in Premix Bag 1 BAG IV ONE (08:30)
[2024-02-06] MEDS: Ropivacaine 34 ML, dexAMETHasone 8 MG, EPINEPHrine 0.4 MG, Sodium Chloride 0.9% 43.6 ML NERVRT SCH (08:57)
[2024-02-06] MEDS ORDERED: Sugammadex Sodium 200 MG/2 ML VIAL IV ONE (09:00)
[2024-02-06] MEDS: Bupivacaine 0.5% 50 ML MDV ONE (09:22)
[2024-02-06] MEDS: Lidocaine 1% with EPINEPHrine 1:100,000 50 ML MDV ONE (09:22)
[2024-02-06 12:37] VITALS: BP 121/71; PULSE 69
== END 2024-02-06 12:00 | disposition home or self-care (01) ==
LOC: JP.SDS 07:05
PROVIDERS: ATTEND Surgery
DX: K80.10 Calculus of gallbladder with chronic cholecystitis without obstruction (principal); I25.10 Atherosclerotic heart disease of native coronary artery without angina pectoris; I10 Essential (primary) hypertension; E78.5 Hyperlipidemia, unspecified; J45.909 Unspecified asthma, uncomplicated; F41.9 Anxiety disorder, unspecified; K21.9 Gastro-esophageal reflux disease without esophagitis; E03.9 Hypothyroidism, unspecified; E66.9 Obesity, unspecified; Z68.31 Body mass index [BMI] 31.0-31.9, adult; Z98.890 Other specified postprocedural states; Z79.890 Hormone replacement therapy; Z79.899 Other long term (current) drug therapy; Z79.82 Long term (current) use of aspirin
CPT/HCPCS: 00790; 36415; 47563; 64488; 80053; 85027; J0171; J0665; J0690; J1100; J1836; J2405; J2704; J2710; J2795; J3010; J3490; J7030; 88304

== ENCOUNTER 2024-05-24 14:17 | Emergency (ER) | payer MEDICARE, BC ==
[2024-05-24 14:41] VITALS: BP 149/62; PULSE 93
== END 2024-05-24 17:43 | disposition home or self-care (01) ==
LOC: JP.ED 14:17
DX: M79.604 Pain in right leg (principal); K21.9 Gastro-esophageal reflux disease without esophagitis; E66.9 Obesity, unspecified; E03.9 Hypothyroidism, unspecified; Z88.2 Allergy status to sulfonamides; Z88.8 Allergy status to other drugs, medicaments and biological substances; Z79.890 Hormone replacement therapy; Z90.49 Acquired absence of other specified parts of digestive tract; Z90.710 Acquired absence of both cervix and uterus; Z68.29 Body mass index [BMI] 29.0-29.9, adult
CPT/HCPCS: 73564-RT; 93971-RT; 99284

== ENCOUNTER 2025-03-10 23:05 | Emergency (ER) | payer MEDICARE, BC ==
[2025-03-10 23:27] LABS: HEMATOCRIT 35.2 % (34.3-46.0); MEAN CORPUSCULAR HEMOGLOBIN 34.7 pg (31.6-35.5); MEAN CORPUSCULAR HGB CONC 34.1 g/dL (31.6-35.5); MEAN CORPUSCULAR VOLUME 101.7 fL (81.4-99.0); RED BLOOD CELL COUNT 3.46 M/uL (3.77-5.24)
[2025-03-10 23:42] LABS: CALCIUM 9.2 mg/dL (8.5-10.1); CREATININE 0.9 mg/dL (0.6-1.0); EST CRCL DRUG DOSING (CG) 32.83 mL/min; POTASSIUM,K 3.9 mmol/L (3.6-5.2)
[2025-03-10 23:43] LABS: ANION GAP 12.9 mmol/L (5.0-14.0)
[2025-03-11] MEDS: ceFAZolin 2 GM in Premix Bag 1 BAG IV SCH (00:18)
[2025-03-11] MEDS: Diphtheria,Pertussis(Acell),Tetanus Vaccine 0.5 ML Syringe IM ONE (01:42)
[2025-03-11] MEDS ORDERED: Naloxone 0.4 MG/ML SDV IVPUSH PRN (02:02)
[2025-03-11] MEDS: Sodium Chloride 0.9% 500 ML IV ONE (02:19)
[2025-03-11] MEDS: Iopamidol 612 MG/ML 100 ML Bottle IV SCH (03:29)
[2025-03-11] MEDS: Sodium Chloride 0.9% 10 ML Syringe FLUSH ONE (03:29)
[2025-03-11] MEDS: Sodium Chloride 0.9% 80 ML IV SCH (03:29)
[2025-03-11] MEDS: Sodium Chloride 0.9% 1,000 ML IV SCH (06:26)
[2025-03-11 07:34] VITALS: BP 140/68; PULSE 97
[2025-03-11] MEDS: HYDROmorphone 0.5 MG/0.5 ML Syringe IVPUSH PRN (08:33)
== END 2025-03-11 09:18 ==
LOC: JP.ED 23:05
DX: S82.431B Displaced oblique fracture of shaft of right fibula, initial encounter for open fracture type I or II (principal); S82.201B Unspecified fracture of shaft of right tibia, initial encounter for open fracture type I or II; I25.10 Atherosclerotic heart disease of native coronary artery without angina pectoris; I25.2 Old myocardial infarction; K21.9 Gastro-esophageal reflux disease without esophagitis; E03.9 Hypothyroidism, unspecified; E66.9 Obesity, unspecified; Z90.710 Acquired absence of both cervix and uterus; Z79.899 Other long term (current) drug therapy; Z23 Encounter for immunization; Z88.2 Allergy status to sulfonamides; Z68.29 Body mass index [BMI] 29.0-29.9, adult; Z88.8 Allergy status to other drugs, medicaments and biological substances; W01.0XXA Fall on same level from slipping, tripping and stumbling without subsequent striking against object, initial encounter; Y92.000 Kitchen of unspecified non-institutional (private) residence as the place of occurrence of the external cause
CPT/HCPCS: 29515; 36415; 73600; 73701; 76377; 80048; 80307; 85027; 90471; 90715; 96361; 96365; 96375; 99284; 99285; J0690; J7030; J7040; Q9967